=== PATIENT | male | born 1965 | race African-American/Black ===

== ENCOUNTER 2019-01-21 10:04 | Inpatient (IN) | payer MEDICAID, OTHER ==
[~2019-01-21] VITALS: Ht 182.9 cm; Wt 95.1 kg
[2019-01-21 11:02] LABS: Basophils # (auto) 0.1 uL; Basophils % (auto) 0.9 % (0.0-2.0); Eosinophils # (auto) 0.5 uL; Hematocrit 40.6 % (41.0-53.0); Lymphocytes # (auto) 1.5 uL; Mean Corpuscular Hemoglobin 29.3 pg (28.0-32.0); Mean Corpuscular Hgb Conc. 32.1 g/dL (32.0-36.0); Mean Corpuscular Volume 91.2 fL (80.0-100.0); Monocytes # (auto) 0.7 uL; Neutrophils # (auto) 3.9 uL; Neutrophils % (auto) 58.1 % (37.0-80.0); Platelet Count (auto) 243 10^3/uL (140-450); Red Blood Cells 4.46 10^6/uL (4.5-5.90); Red Cell Distribution Width 14.4 % (11.8-14.3); White Blood Cell 6.7 10^3/uL (4.4-10.8)
[2019-01-21 11:23] LABS: Chloride 117 mmol/L (98-107); INR 0.91 (0.9-1.15); Partial Thromboplastin Time 28.4 sec (23.78-33.04); Prothrombin Time 9.8 sec (9.27-12.13); Sodium 146 mmol/L (136-145)
[2019-01-21 11:31] LABS: Urine Bacteria NONE SEEN /hpf (None Seen); Urine Blood 1+ /uL (Negative); Urine Specific Gravity 1.009 (1.001-1.035); Urine WBC 1 /hpf (0 - 3)
[2019-01-21 11:37] LABS: Alanine Aminotransferase 33 U/L (16-61); Albumin 2.9 g/dL (3.4-5.0); Alkaline Phosphatase 89 U/L (45-117); Anion Gap 8 (5-15); Aspartate Aminotransferase 22 U/L (15-37); BUN/Creatinine Ratio 7.5; Bilirubin, Total 0.3 mg/dL (0.2-1.0); Blood Alcohol < 3.0 mg/dL (0-5); Blood Urea Nitrogen 49 mg/dL (7-18); Calcium 7.6 mg/dL (8.5-10.1); Carbon Dioxide 21 mmol/L (21-32); GFR African American 11 mL/min; GFR Non-African American 9 mL/min; Glucose 93 mg/dL (74-106); Total Protein 7.5 g/dL (6.4-8.2)
[2019-01-21 11:37] LABS: Alcohol, Urine < 3.0 mg/dL (0-5); Amphetamine Screen, Urine NEGATIVE (NEGATIVE); Barbiturate Scree,Urine NEGATIVE (NEGATIVE); Benzodiazephine Screen, Urine NEGATIVE (NEGATIVE); Cannabinoid Screen, Urine NEGATIVE (NEGATIVE); Cocaine Screen, Urine POSITIVE (NEGATIVE); Opiate Scree,Urine NEGATIVE (NEGATIVE); Phencyclidine Screen, Urine POSITIVE (NEGATIVE)
[2019-01-21] MEDS ORDERED: cloNIDine HCL 0.1 MG TAB PO ONE (11:45)
[2019-01-21] MEDS ORDERED: ENOXAPARIN SOD 100 MG/1 ML SYRINGE SC ONE (12:00)
[2019-01-21] MEDS ORDERED: cloNIDine 0.2 mg/24hr 7DAY PATCH TD ONE (14:15)
[2019-01-21] MEDS ORDERED: LORazepam 2MG/ML-1ML VIAL IV PRN (16:30)
[2019-01-21] MEDS ORDERED: ACETAMINOPHEN 500 MG TAB PO PRN (16:30)
[2019-01-21] MEDS ORDERED: ONDANSETRON HCL 4 MG/2 ML VIAL IV PRN (16:30)
[2019-01-21] MEDS ORDERED: NITROGLYCERIN 0.4 MG SL TAB SL PRN (16:30)
[2019-01-21] MEDS ORDERED: MORPHINE SULF INJ 2 MG/ML SYRINGE 1ML IV PRN (16:30)
[2019-01-21] MEDS ORDERED: MORPHINE SULFATE 4 MG/ML SYR/VIAL IV PRN (16:30)
[2019-01-21] MEDS: hydrALAZINE HCL 20 MG/ML VL IV PRN ×2 (17:18→23:05)
[2019-01-21] MEDS ORDERED: amLODIPine BESYLATE 5 MG TAB PO ONE (18:45)
[2019-01-21 22:00] VITALS: BP 104/59
[2019-01-21] MEDS: METOPROLOL TARTRATE 25 MG TAB PO SCH (22:00)
[2019-01-21] MEDS: ATORVASTATIN 20 MG TAB PO SCH (22:00)
--- NOTE | 2019-01-21 22:20 | NUR ---
Telemetry admit from ER FERNANDALYNDON admitted to Telemetry unit. No SBAR received. Patient oriented to TAWANDA LAWSON primary RN, [facility], room-0293, bed-A, and unit policies regarding patient care and visiting hours. Patient now on continuous telemetry monitoring, tele box #20 and telemetry reading on arrival to unit is SR 70-80's. Patient placed on bedside oxygen 2L, PRN, and encouraged to call if they need something. All questions and concerns addressed, patient verbalized understanding.
[2019-01-21] MEDS: HYDROcodone-ACET 5/325MG TAB PO PRN (23:04)
[2019-01-22 06:17] VITALS: BP 104/59
[2019-01-22 06:53] LABS: Basophils # (auto) 0 uL; Basophils % (auto) 0.7 % (0.0-2.0); Eosinophils # (auto) 0.5 uL; Eosinophils % (auto) 7.9 % (0.0-7.0); Hematocrit 39.5 % (41.0-53.0); Hemoglobin 12.5 g/dL (13.5-17.5); Lymphocytes # (auto) 1.4 uL; Lymphocytes % (auto) 22.2 % (10.0-50.0); Mean Corpuscular Hemoglobin 28.9 pg (28.0-32.0); Mean Corpuscular Hgb Conc. 31.7 g/dL (32.0-36.0); Mean Corpuscular Volume 91.2 fL (80.0-100.0); Monocytes # (auto) 0.5 uL; Monocytes % (auto) 7.9 % (0.0-12.0); Neutrophils # (auto) 3.8 uL; Neutrophils % (auto) 61.3 % (37.0-80.0); Nucleated Red Blood Cells % 0.1 %; Platelet Count (auto) 255 10^3/uL (140-450); Red Blood Cells 4.33 10^6/uL (4.5-5.90); Red Cell Distribution Width 14.6 % (11.8-14.3); White Blood Cell 6.1 10^3/uL (4.4-10.8)
[2019-01-22 06:56] LABS: INR 0.93 (0.9-1.15); Partial Thromboplastin Time 29.1 sec (23.78-33.04)
--- NOTE | 2019-01-22 07:00 | NUR ---
Opening Shift Note Assumed care of patient, awake and alert to person, place, and situation. No S/S of distress/SOB or pain. Instructed on POC and to call for assist PRN. Bed locked in the lowest position. Bed rails up x2. Call light in reach.
--- NOTE | 2019-01-22 07:04 | NUR ---
closing Shift Note SBAR REPORT TO BE GIVEN TO Maciej Ngo RN. awake and alert 4x. No S/S of distress/SOB or pain. Instructed on POC and to call for assist PRN, safety measures in place .
[2019-01-22 07:10] LABS: Potassium 4.1 mmol/L (3.5-5.1)
[2019-01-22 07:13] LABS: BUN/Creatinine Ratio 8.4; Calcium 7.9 mg/dL (8.5-10.1)
--- NOTE | 2019-01-22 08:00 | NUR ---
PATIENT MENTATION PATIENT IS ALERT AND ORIENTED AND STATES, "I AM HOMELESS RIGHT NOW AND LIVE IN MY CAR. I AM TRYING TO GET A HOLD OF MY DAUGHTER TO SEE IF I CAN STAY WITH HER." PATIENT ALSO STATES, "I NEED TO GET A DIALYSIS CATH AND PLAN TO GET ONE BECAUSE I NEED TO FIGHT THIS." PATIENT DENIES THOUGHTS OF HARMING SELF OR HARMING OTHERS.
[2019-01-22 08:25] VITALS: BP 125/87
[2019-01-22] MEDS: ASPirin-EC 81 mg tab PO SCH (09:55)
[2019-01-22] MEDS: PANTOPRAZOLE 40 MG/10 ML VIAL IV SCH (09:55)
[2019-01-22] MEDS: METOPROLOL TARTRATE 25 MG TAB PO SCH ×2 (09:56→23:01)
[2019-01-22] MEDS ORDERED: IOHEXOL 350 MG/ML 100ML IJ ONE (10:35)
[2019-01-22] MEDS ORDERED: LIDOCAINE 2%HCL (LOCAL ANESTH.) INJ 20ML MDV ONE ×2 (10:35→11:55)
[2019-01-22] MEDS ORDERED: MIDAZOLAM HCL 1MG/1ML-2 ML VIAL ONE (10:43)
[2019-01-22] MEDS ORDERED: fentaNYL CITRATE 100 MCG/2 ML VL ONE (10:45)
[2019-01-22] MEDS ORDERED: ceFAZolin 1GM/50ML 50 ML IV ONE (11:33)
[2019-01-22] MEDS ORDERED: HEPARIN SODIUM (PORCINE) 5000 UNITS/ML 1ML VIAL ONE (11:50)
[2019-01-22] MEDS: CALCIUM ACETATE 667 MG CAP PO SCH ×2 (12:00→18:00)
--- NOTE | 2019-01-22 14:20 | NUR ---
DRESSING TO RT UPPER CHEST DRESSING SOAKED THROUGH WITH SANGUINOUS DRAINAGE. MANUAL PRESSURE APPLIED. PRESSURE DRESSING APPLIED. SPOKE WITH RADIOLOGIST DR. EDGE. MD AWARE. PER MD, CHANGE DRESSING AND APPLY LIGHT SAND BAG. WILL CONTINUE TO MONITOR.
[2019-01-22] MEDS: HYDROcodone-ACET 5/325MG TAB PO PRN ×2 (16:01→23:00)
[2019-01-22] MEDS ORDERED: LIDOCAINE 1% (LOCAL ANESTH.) PF 5ml SDV ONE (16:49)
[2019-01-22 16:54] VITALS: BP 151/100
[2019-01-22] MEDS: hydrALAZINE HCL 20 MG/ML VL IV PRN (16:59)
--- NOTE | 2019-01-22 17:05 | NUR ---
AT THE BEDSIDE DR. EDGE AT THE BEDSIDE. MD ADDED STITCH TO RT UPPER CHEST. AND CHANGED DRESSING. PER MD, APPLY LIGHT SANDBAG.
[2019-01-22 17:30] VITALS: BP 134/92
--- NOTE | 2019-01-22 19:00 | NUR ---
CLOSING NOTE Patient is awake and alert. No S/S of distress/SOB or pain. Dressing to rt upper chest clean dry and intact. Bed locked in the lowest position. Bed rails up x2. Call light in reach. Endorsed care to night shift supervisor nurse.
[2019-01-22] MEDS ORDERED: HCTZ25T PO (19:33)
[2019-01-22] MEDS ORDERED: MET25T PO (19:33)
[2019-01-22] MEDS ORDERED: CLON0.1T PO (19:33)
--- NOTE | 2019-01-22 19:50 | NUR ---
Opening Shift Note Assumed care of pt, sitting up in bed watching television, alert and oriented x4. No S/S of distress or SOB, no pain noted or reported at this time. Instructed on POC and to call for assistance as needed. Bed locked in lowest position with call light within reach. Will continue to monitor Q1hr or PRN throughout the shift.
[2019-01-22 22:00] VITALS: BP 148/82
[2019-01-22] MEDS: SODIUM BICARBONATE 650 MG TAB PO SCH (22:59)
[2019-01-22] MEDS: ATORVASTATIN 20 MG TAB PO SCH (23:00)
[2019-01-23 05:21] VITALS: BP 147/102
[2019-01-23 05:51] LABS: Basophils # (auto) 0 uL; Basophils % (auto) 0.6 % (0.0-2.0); Eosinophils # (auto) 0.5 uL; Eosinophils % (auto) 7.9 % (0.0-7.0); Hemoglobin 11.2 g/dL (13.5-17.5); Lymphocytes # (auto) 1.6 uL; Lymphocytes % (auto) 27.2 % (10.0-50.0); Mean Corpuscular Hemoglobin 29.1 pg (28.0-32.0); Mean Corpuscular Hgb Conc. 32.1 g/dL (32.0-36.0); Mean Corpuscular Volume 90.6 fL (80.0-100.0); Monocytes # (auto) 0.5 uL; Monocytes % (auto) 8.4 % (0.0-12.0); Neutrophils # (auto) 3.3 uL; Neutrophils % (auto) 55.9 % (37.0-80.0); Nucleated Red Blood Cells % 0.1 %; Platelet Count (auto) 216 10^3/uL (140-450); Red Blood Cells 3.87 10^6/uL (4.5-5.90); Red Cell Distribution Width 14.3 % (11.8-14.3); White Blood Cell 5.9 10^3/uL (4.4-10.8)
[2019-01-23 06:25] LABS: BUN/Creatinine Ratio 8.9; Calcium 7.8 mg/dL (8.5-10.1)
[2019-01-23] MEDS ORDERED: SODIUM CHL 0.9% 1000 ML BAG XX ONE (07:00)
--- NOTE | 2019-01-23 07:30 | NUR ---
Opening Shift Note Assumed care of patient, awake and alert. No S/S of distress/SOB or pain reported at this time. Instructed on POC and to call for assist PRN, call light within reach, right upper chest dialysis catheter cdi, will continue to monitor for changes Q1hr and PRN.
[2019-01-23 08:00] VITALS: BP 130/72
[2019-01-23] MEDS: CALCIUM ACETATE 667 MG CAP PO SCH ×3 (08:00→18:00)
--- NOTE | 2019-01-23 08:15 | NUR ---
DIALYSIS NURSE AT BEDSIDE
[2019-01-23 08:29] VITALS: BP 124/71
--- NOTE | 2019-01-23 12:10 | NUR ---
DIALYSIS COMPLETE 2L WERE REMOVED PER DIALYSIS NURSE, VS 141/97, P 91, RR 18, PT ASYMPTOMATIC, CONT CARE
[2019-01-23 13:00] VITALS: BP 161/99
[2019-01-23] MEDS: PANTOPRAZOLE 40 MG/10 ML VIAL IV SCH (14:41)
[2019-01-23] MEDS: ASPirin-EC 81 mg tab PO SCH (14:42)
[2019-01-23] MEDS: METOPROLOL TARTRATE 25 MG TAB PO SCH ×2 (14:42→21:58)
[2019-01-23] MEDS: SODIUM BICARBONATE 650 MG TAB PO SCH ×2 (14:42→21:59)
[2019-01-23 16:45] VITALS: BP 134/89
--- NOTE | 2019-01-23 16:58 | NUR ---
PT CARE ENDORSED TO CHARLES ARRIAGA PT CURRENTLY AWAKE, AXOX4, NO DISTRESS NOTED
--- NOTE | 2019-01-23 19:40 | NUR ---
Opening Shift Note Assumed care of pt, sitting up in bed watching television and talking on the phone, alert and oriented x4. No S/S of distress or SOB, no pain noted or reported at this time. Instructed on POC and to call for assistance as needed. Bed locked in lowest position with call light within reach. Will continue to monitor Q1hr or PRN throughout the shift.
[2019-01-23] MEDS: HYDROcodone-ACET 5/325MG TAB PO PRN (20:55)
[2019-01-23] MEDS: ATORVASTATIN 20 MG TAB PO SCH (21:59)
[2019-01-23 22:00] VITALS: BP 131/67
--- NOTE | 2019-01-24 00:13 | NUR ---
IV Removal and Insertion Right AC IV DC'd with clean sterile technique, catheter fully intact. Pressure dressing applied to site. Patient tolerated well. IV access obtained, via clean sterile technique by inserting 20 gauge catheter at Right Forearm after 3 attempt(s). IV secured properly. No trauma to site. Patient tolerated well.
[2019-01-24 05:00] VITALS: BP 119/65
[2019-01-24 06:19] LABS: Basophils # (auto) 0 uL; Basophils % (auto) 0.7 % (0.0-2.0); Eosinophils # (auto) 0.5 uL; Eosinophils % (auto) 8.4 % (0.0-7.0); Hematocrit 34.8 % (41.0-53.0); Hemoglobin 11.4 g/dL (13.5-17.5); Lymphocytes # (auto) 1.6 uL; Lymphocytes % (auto) 28.4 % (10.0-50.0); Mean Corpuscular Hemoglobin 29.5 pg (28.0-32.0); Mean Corpuscular Hgb Conc. 32.6 g/dL (32.0-36.0); Mean Corpuscular Volume 90.6 fL (80.0-100.0); Monocytes # (auto) 0.6 uL; Monocytes % (auto) 10.9 % (0.0-12.0); Neutrophils # (auto) 2.9 uL; Neutrophils % (auto) 51.6 % (37.0-80.0); Nucleated Red Blood Cells % 0.1 %; Platelet Count (auto) 203 10^3/uL (140-450); Red Blood Cells 3.85 10^6/uL (4.5-5.90); Red Cell Distribution Width 13.9 % (11.8-14.3); White Blood Cell 5.6 10^3/uL (4.4-10.8)
[2019-01-24 06:25] LABS: BUN/Creatinine Ratio 8.4; Calcium 7.9 mg/dL (8.5-10.1); Potassium 3.7 mmol/L (3.5-5.1)
[2019-01-24 08:00] VITALS: BP 133/91
[2019-01-24] MEDS ORDERED: ERGOCALCIFEROL 50,000 UNIT(1.25MG) CAP PO SCH (09:00)
[2019-01-24] MEDS: CALCIUM ACETATE 667 MG CAP PO SCH ×3 (09:19→18:16)
[2019-01-24] MEDS: ASPirin-EC 81 mg tab PO SCH (10:25)
[2019-01-24] MEDS: PANTOPRAZOLE 40 MG/10 ML VIAL IV SCH (10:25)
[2019-01-24] MEDS: SODIUM BICARBONATE 650 MG TAB PO SCH ×2 (10:25→21:40)
[2019-01-24] MEDS: METOPROLOL TARTRATE 25 MG TAB PO SCH ×2 (10:26→21:40)
--- NOTE | 2019-01-24 11:44 | NUR ---
assessment Patient is a 53 year old male who is alert and oriented. Patient informed me prior to admission he was homeless. Patient informed me he has been living with friends and in his car for the past 6 months since he was paroled. Patient has no income. Patient functions independently. Patient has no advanced directive or POA. Patient informed me he will find his own place to go on discharge. Patient has been offered homeless resource packet and he accepted. Patient has been offered homeless jail and he refused. Patient has a ss consult for homeless that has been addressed above and a ss consult for new dialysis chair time. MD order and dialysis packet has been sent to [facility] dialysis. Waiting for chair time now. Addendum: 01/25/19 at 1552 by Yesi MEDINA Amended: Links added.
[2019-01-24 12:16] LABS: Hepatitis A Ab IgM Negative; Hepatitis B Core IgM Negative; Hepatitis B Surface Antigen Negative (Negative)
[2019-01-24 12:17] LABS: Hepatitis C Antibody Negative (Negative)
[2019-01-24] MEDS: HYDROcodone-ACET 5/325MG TAB PO PRN ×2 (12:46→21:40)
[2019-01-24 13:00] VITALS: BP 153/101
--- NOTE | 2019-01-24 19:30 | NUR ---
Opening Shift Note Assumed care of pt, sitting up in talking on the phone, alert and oriented x4. No S/S of distress or SOB, no pain noted or reported at this time. Instructed on POC and to call for assistance as needed. Bed locked in lowest position with call light within reach. Will continue to monitor Q1hr or PRN throughout the shift.
[2019-01-24] MEDS: ATORVASTATIN 20 MG TAB PO SCH (21:40)
[2019-01-24 22:00] VITALS: BP 146/92
[2019-01-25 05:00] VITALS: BP 144/92
[2019-01-25 06:23] LABS: Basophils # (auto) 0.1 uL; Eosinophils # (auto) 0.5 uL; Eosinophils % (auto) 8.1 % (0.0-7.0); Hematocrit 33.2 % (41.0-53.0); Hemoglobin 10.7 g/dL (13.5-17.5); Lymphocytes # (auto) 1.8 uL; Lymphocytes % (auto) 32.5 % (10.0-50.0); Mean Corpuscular Hemoglobin 29.1 pg (28.0-32.0); Mean Corpuscular Hgb Conc. 32.1 g/dL (32.0-36.0); Mean Corpuscular Volume 90.7 fL (80.0-100.0); Monocytes # (auto) 0.6 uL; Monocytes % (auto) 10.1 % (0.0-12.0); Neutrophils # (auto) 2.7 uL; Neutrophils % (auto) 48.3 % (37.0-80.0); Nucleated Red Blood Cells % 0.1 %; Platelet Count (auto) 188 10^3/uL (140-450); Red Blood Cells 3.66 10^6/uL (4.5-5.90); Red Cell Distribution Width 13.8 % (11.8-14.3); White Blood Cell 5.6 10^3/uL (4.4-10.8)
[2019-01-25 06:37] LABS: BUN/Creatinine Ratio 8.4; Calcium 7.5 mg/dL (8.5-10.1); Potassium 3.6 mmol/L (3.5-5.1)
[2019-01-25 08:00] VITALS: BP 152/91
[2019-01-25] MEDS: CALCIUM ACETATE 667 MG CAP PO SCH ×3 (08:00→18:00)
[2019-01-25] MEDS ORDERED: SODIUM CHL 0.9% 1000 ML BAG XX ONE (08:30)
[2019-01-25 09:00] VITALS: BP 145/87
[2019-01-25] MEDS: HYDROcodone-ACET 5/325MG TAB PO PRN ×2 (09:28→17:07)
--- NOTE | 2019-01-25 09:45 | NUR ---
FAMILY SPOKE WITH PT'S TERRI FIERRO, STATES SHE WILL COME SEE PT, CONTACT
[2019-01-25] MEDS: PANTOPRAZOLE 40 MG/10 ML VIAL IV SCH (10:00)
--- NOTE | 2019-01-25 10:05 | NUR ---
NEPHRO DR TIDWELL AT BEDSIDE, DISCUSSING POC, PT SCHEDULED FOR DIALYSIS TODAY, [facility]
--- NOTE | 2019-01-25 10:08 | NUR ---
TECHNICAL DOCUMENT WRITER PAGED KODI PAGED REGARDING CONSULT FOR HOMELESSNESS, CONT CARE
[2019-01-25] MEDS ORDERED: CALC667C5 PO (10:42)
[2019-01-25] MEDS ORDERED: MET25T PO (10:42)
[2019-01-25] MEDS ORDERED: ERGO1CAP23 PO (10:42)
[2019-01-25] MEDS ORDERED: SODI650T PO (10:42)
[2019-01-25 13:00] VITALS: BP 149/89
[2019-01-25 13:44] LABS: Hematocrit 35.6 % (41.0-53.0); Hemoglobin 11.3 g/dL (13.5-17.5)
--- NOTE | 2019-01-25 15:37 | NUR ---
DIALYSIS IN PROCESS PT ASYMPTOMATIC, CONT CARE
--- NOTE | 2019-01-25 15:50 | NUR ---
re-assessment Patient has signed homeless waiver and it has been placed in his chart. I have informed patient he has dialysis chair time on at 245pm per Ezequiel at [facility]. Patient has been given the address and phone number for dialysis. Patient verbalized understanding and agreed to discharge plan of finding his own long term. Addendum: 01/25/19 at 1552 by Yesi MEDINA Amended: Links added.
--- NOTE | 2019-01-25 16:37 | NUR ---
DIALYSIS COMPLETE 2.5L REMOVED, BP 147/86, P 83, PT ASYMPTOMATIC, CONT CARE
[2019-01-25 17:00] VITALS: BP 139/97
[2019-01-25] MEDS: SODIUM BICARBONATE 650 MG TAB PO SCH (17:07)
[2019-01-25] MEDS: ASPirin-EC 81 mg tab PO SCH (17:07)
[2019-01-25] MEDS: METOPROLOL TARTRATE 25 MG TAB PO SCH (17:08)
--- NOTE | 2019-01-25 17:37 | NUR ---
DISCHARGE Discharge instructions given as ordered. Encourage to follow up with PMD as instructed, Appointment made to follow up with Dr Ryan Goddard 01/29/19 @ 9:00, phone number and address provided, patient also was provided with dialysis days for tx, phone number and address. All questions and concerns addressed. Patient was informed MD sent prescribed medications electronically to their preferred pharmacy, pt verbalized understanding. Medication reconciliation form completed and copy given to patient. IV removed with catheter intact, pressure dressing applied. Telemetry unit returned to ICU. Patient taken to vehicle via wheelchair with all personal belongings, accompanied by staff and family member. No distress noted at time of departure. Addendum: 01/25/19 at 1802 by Vanessa Smith RN TRANSPORTATION WAS PROVIDED BY A FRIEND
[2019-01-25] MEDS ORDERED: EPOETIN ALFA 10,000 UNIT/1 ML VIAL SC ONE (21:00)
== END 2019-01-25 17:37 | disposition home or self-care (01) | DRG 192 ==
LOC: ER 10:04 → EDBD 10:04 → EDUNIT# 10:04 → TELE 16:34 → TELE-WESTW 21:55
PROVIDERS: ADMIT Nurse Practitioner Acute Care; ATTEND Internal Medicine
PROC: B2141ZZ Fluoroscopy of Right Heart using Low Osmolar Contrast (ICD-10-PCS; 2019-01-22)
PROC: 0JH63XZ Insertion of Tunneled Vascular Access Device into Chest Subcutaneous Tissue and Fascia, Percutaneous Approach (ICD-10-PCS; 2019-01-22)
PROC: 02H633Z Insertion of Infusion Device into Right Atrium, Percutaneous Approach (ICD-10-PCS; 2019-01-22)
PROC: B244ZZZ Ultrasonography of Right Heart (ICD-10-PCS; 2019-01-22)
PROC: 5A1D70Z Performance of Urinary Filtration, Intermittent, Less than 6 Hours Per Day (ICD-10-PCS; principal; 2019-01-23)
PROC: 5A1D70Z Performance of Urinary Filtration, Intermittent, Less than 6 Hours Per Day (ICD-10-PCS; 2019-01-25)
DX: I16.9 Hypertensive crisis, unspecified (principal); I21.4 Non-ST elevation (NSTEMI) myocardial infarction; G92 Toxic encephalopathy; E44.0 Moderate protein-calorie malnutrition; E87.2 Acidosis; E66.9 Obesity, unspecified; F14.10 Cocaine abuse, uncomplicated; N18.6 End stage renal disease; I12.0 Hypertensive chronic kidney disease with stage 5 chronic kidney disease or end stage renal disease; E79.0 Hyperuricemia without signs of inflammatory arthritis and tophaceous disease; N25.81 Secondary hyperparathyroidism of renal origin; D64.9 Anemia, unspecified; F17.200 Nicotine dependence, unspecified, uncomplicated; E83.39 Other disorders of phosphorus metabolism; Z99.2 Dependence on renal dialysis; Z59.0 Homelessness; Z82.3 Family history of stroke; Z82.49 Family history of ischemic heart disease and other diseases of the circulatory system; Z83.3 Family history of diabetes mellitus; Z68.28 Body mass index [BMI] 28.0-28.9, adult
CPT/HCPCS: 36415; 36600; 70450; 71045; 76000; 76942; 80048; 80053; 80074; 80307; 80320; 81001; 82306; 82728; 82805; 83540; 83550; 83605; 83970; 84100; 84484; 85014; 85018; 85025; 85610; 85730; 86141; 87040; 87081; 90935; 93005; 93306; 96372; A6257; C9113; G0378; J0690; J0885; J1642; J2250

== ENCOUNTER 2019-07-02 04:27 | Inpatient (IN) | payer MEDICAID ==
[~2019-07-02] VITALS: Ht 175.3 cm; Wt 91.4 kg
[~2019-07-02 04:27] MED LIST: CALC667C5 PO; ERGO1CAP23 PO; HCTZ25T PO; MET25T PO; SODI650T PO
[2019-07-02 08:42] LABS: Basophils # (auto) 0 uL; Basophils % (auto) 0.2 % (0.0-2.0); Eosinophils # (auto) 0 uL; Lymphocytes # (auto) 0.8 uL; Lymphocytes % (auto) 7.6 % (10.0-50.0); Mean Corpuscular Hemoglobin 30.7 pg (28.0-32.0); Mean Corpuscular Hgb Conc. 33.4 g/dL (32.0-36.0); Mean Corpuscular Volume 92.1 fL (80.0-100.0); Monocytes # (auto) 0.9 uL; Monocytes % (auto) 9.3 % (0.0-12.0); Neutrophils # (auto) 8.5 uL; Neutrophils % (auto) 82.9 % (37.0-80.0); Nucleated Red Blood Cells % 0.1 %; Platelet Count (auto) 288 10^3/uL (140-450); Red Blood Cells 4.23 10^6/uL (4.5-5.90); Red Cell Distribution Width 14.7 % (11.8-14.3); White Blood Cell 10.2 10^3/uL (4.4-10.8)
[2019-07-02 09:00] LABS: Albumin 4.6 g/dL (3.4-5.0); BUN/Creatinine Ratio 6.3; Calcium 7.5 mg/dL (8.5-10.1); Potassium 5.4 mmol/L (3.5-5.1)
[2019-07-02 09:02] LABS: Bilirubin, Total 0.4 mg/dL (0.2-1.0); Total Protein 8.8 g/dL (6.4-8.2)
[2019-07-02] MEDS ORDERED: ALBUTEROL SULF 2.5 MG/0.5ML(0.5%) NEB SOLN NEB STA (10:47)
[2019-07-02] MEDS ORDERED: CALCIUM GLUC 4.65meq/50ml D5AE 50 ML IV ONE (11:00)
[2019-07-02] MEDS ORDERED: SODIUM BICARBONATE 8.4% INJ 50ML SYRINGE IV ONE (11:00)
[2019-07-02] MEDS ORDERED: DEXTROSE (50%) 50ML SYRG IV ONE (11:00)
[2019-07-02] MEDS ORDERED: InsuLIN REG 1unit/0.01ml Soln (100units/ml) IV ONE (11:00)
[2019-07-02] MEDS ORDERED: SODIUM ZIRCONIUM CYCL 10 GM PAK PO ONE (11:00)
[2019-07-02] MEDS ORDERED: NITROGLYCERIN 0.4 MG SL TAB SL PRN (11:45)
[2019-07-02] MEDS ORDERED: ONDANSETRON HCL 4 MG/2 ML VIAL IV PRN (11:45)
[2019-07-02] MEDS ORDERED: ACETAMINOPHEN 500 MG TAB PO PRN (11:45)
[2019-07-02] MEDS ORDERED: LORazepam 2MG/ML-1ML VIAL IV PRN (11:45)
[2019-07-02] MEDS ORDERED: hydrALAZINE HCL 20 MG/ML VL IV PRN (11:45)
[2019-07-02] MEDS ORDERED: MORPHINE SULF INJ 2 MG/ML SYRINGE 1ML IV PRN ×2 (11:45)
[2019-07-02] MEDS: HYDROcodone-ACET 5/325MG TAB PO PRN (19:59)
[2019-07-02] MEDS ORDERED: ALBUMIN 5% 250 ML IV ONE (22:15)
[2019-07-03 04:03] LABS: Urine Amorphous Crystal FEW /hpf (None Seen); Urine Bacteria FEW /hpf (None Seen); Urine Blood 1+ /uL (Negative); Urine Specific Gravity 1.009 (1.001-1.035); Urine WBC 1 /hpf (0 - 3)
[2019-07-03 04:05] LABS: Alcohol, Urine < 3.0 mg/dL (0-5); Amphetamine Screen, Urine NEGATIVE (NEGATIVE); Barbiturate Scree,Urine NEGATIVE (NEGATIVE); Benzodiazephine Screen, Urine NEGATIVE (NEGATIVE); Cannabinoid Screen, Urine NEGATIVE (NEGATIVE); Cocaine Screen, Urine POSITIVE (NEGATIVE); Opiate Scree,Urine NEGATIVE (NEGATIVE); Phencyclidine Screen, Urine POSITIVE (NEGATIVE)
[2019-07-03 05:55] LABS: Basophils # (auto) 0 uL; Basophils % (auto) 0.5 % (0.0-2.0); Eosinophils # (auto) 0.1 uL; Eosinophils % (auto) 2.5 % (0.0-7.0); Hematocrit 34.4 % (41.0-53.0); Hemoglobin 11.6 g/dL (13.5-17.5); Lymphocytes # (auto) 1.6 uL; Mean Corpuscular Hemoglobin 30.9 pg (28.0-32.0); Mean Corpuscular Hgb Conc. 33.6 g/dL (32.0-36.0); Mean Corpuscular Volume 91.8 fL (80.0-100.0); Monocytes # (auto) 0.6 uL; Monocytes % (auto) 11.3 % (0.0-12.0); Neutrophils # (auto) 3.3 uL; Neutrophils % (auto) 57.7 % (37.0-80.0); Nucleated Red Blood Cells % 0.1 %; Platelet Count (auto) 241 10^3/uL (140-450); Red Blood Cells 3.75 10^6/uL (4.5-5.90); Red Cell Distribution Width 14.3 % (11.8-14.3); White Blood Cell 5.7 10^3/uL (4.4-10.8)
[2019-07-03 06:08] LABS: Partial Thromboplastin Time 29.3 sec (23.64-32.05)
[2019-07-03 08:00] LABS: Albumin 3.9 g/dL (3.4-5.0); Potassium 3.6 mmol/L (3.5-5.1)
--- NOTE | 2019-07-03 08:02 | NUR ---
Telemetry admit from ER LYNDON MICHAEL admitted to Telemetry unit. Patient oriented to Leonard Burks, primary RN, unit, room, bed, and unit policies regarding patient care and visiting hours. Patient now on continuous telemetry monitoring, tele box # 38 and telemetry reading on arrival to unit is [id number]. Patient placed on bedside oxygen, weighed by bed scale and encouraged to call if they need something. All questions and concerns addressed, patient verbalized understanding. N
[2019-07-03 08:09] LABS: Calcium 6.7 mg/dL (8.5-10.1)
[2019-07-03 08:14] LABS: Bilirubin, Total 0.3 mg/dL (0.2-1.0); Total Protein 7.4 g/dL (6.4-8.2)
[2019-07-03 09:00] VITALS: BP 117/80
--- NOTE | 2019-07-03 09:01 | NUR ---
Paged Dr. Cid: latest CMP results and returned call, patient is to have dialysis today and will sent manager dialysis.
[2019-07-03] MEDS: FAMOTIDINE 20 MG TAB PO SCH (10:19)
[2019-07-03] MEDS ORDERED: B-COMPLEX W/ C & FOLIC ACID(NEPHROVITE TAB) PO ONE (11:00)
[2019-07-03 12:12] VITALS: BP 107/55
[2019-07-03] MEDS: CALCIUM ACETATE 667 MG CAP PO SCH ×2 (12:44→18:44)
[2019-07-03] MEDS: HYDROcodone-ACET 5/325MG TAB PO PRN ×2 (12:47→18:47)
--- NOTE | 2019-07-03 16:00 | NUR ---
Hemodialysis done. No fluid was out per patient request. Patient complained about having severe cramps every after dialysis. Dr. Cid was made aware per incinerator attendant.
--- NOTE | 2019-07-03 16:13 | NUR ---
assessment Patient is a 54 year old male who is alert and oriented. Prior to admission patient lived home with his fiance and functioned independently. per patient he is here visiting from [place]. Patient informed me he is on dialysis with [facility] in [place]. I informed patient he has a ss consult for needs assistance at home. Patient informed me he does not need assistance at home. Patient informed me he needs help with his cramping after he has dialysis. I informed patient to speak to the MD about his cramping. Patient verbalized understanding and agreed to discharge plan home. Addendum: 07/04/19 at 1617 by Yesi MEDINA Amended: Links added.
--- NOTE | 2019-07-03 16:25 | NUR ---
Patient out of bed.
[2019-07-03 16:42] VITALS: BP 125/68
--- NOTE | 2019-07-03 17:50 | NUR ---
Patient back to bed.
--- NOTE | 2019-07-03 18:54 | NUR ---
Patient out of bed. Went AMA to smoke.
--- NOTE | 2019-07-03 19:23 | NUR ---
Patient back to his bed.
[2019-07-03 22:00] VITALS: BP 115/71
[2019-07-04 04:36] VITALS: BP 128/80
[2019-07-04 06:16] LABS: BUN/Creatinine Ratio 6.1; Calcium 7.6 mg/dL (8.5-10.1); Potassium 4.2 mmol/L (3.5-5.1)
--- NOTE | 2019-07-04 06:31 | NUR ---
SABAS PAGED BECAUSE THE PATIENT HAS A HIGH CREATININE OF 12.4. PT TOLD DIALYSIS NURSE DURING DIALYSIS YESTERDAY THAT HE DID NOT WANT ANY FLUID TAKEN OFF" DURING DIALYSIS.
--- NOTE | 2019-07-04 08:00 | NUR ---
Opening Shift Note Assumed care of patient, awake and alert. No S/S of distress/SOB or pain. Instructed on POC and to call for assist PRN, will continue to monitor for changes Q1hr and PRN.
[2019-07-04] MEDS: CALCIUM ACETATE 667 MG CAP PO SCH ×2 (08:50→13:02)
[2019-07-04] MEDS: FAMOTIDINE 20 MG TAB PO SCH (08:50)
[2019-07-04] MEDS: HYDROcodone-ACET 5/325MG TAB PO PRN (08:53)
[2019-07-04 09:02] VITALS: BP 124/72
[2019-07-04] MEDS ORDERED: B-COMPLEX W/ C & FOLIC ACID(NEPHROVITE TAB) PO SCH (10:00)
--- NOTE | 2019-07-04 13:00 | NUR ---
Discharge instructions given as ordered. Encourage to follow up with PMD Dr. Ryan Box on 07/09/19 at 0830 #[phone] [place] [address] [place], [place] as instructed. All questions and concerns addressed. Patient verbalized understanding. Medication reconciliation form completed and copy given to patient. IV removed with catheter intact, pressure dressing applied. Telemetry unit returned to ICU. Patient ambulated to vehicle with all personal belongings, accompanied by staff and family member. No distress noted at time of departure.
== END 2019-07-04 13:00 | disposition home or self-care (01) | DRG 194 ==
LOC: ER 04:27 → TELE 04:28 → TELE-CENTR 07-03 08:20
PROVIDERS: ADMIT Nurse Practitioner Acute Care; ATTEND Internal Medicine
PROC: 5A1D70Z Performance of Urinary Filtration, Intermittent, Less than 6 Hours Per Day (ICD-10-PCS; principal; 2019-07-03)
DX: I13.2 Hypertensive heart and chronic kidney disease with heart failure and with stage 5 chronic kidney disease, or end stage renal disease (principal); N18.6 End stage renal disease; E87.5 Hyperkalemia; F19.10 Other psychoactive substance abuse, uncomplicated; D64.9 Anemia, unspecified; I50.43 Acute on chronic combined systolic (congestive) and diastolic (congestive) heart failure; R09.02 Hypoxemia; E78.5 Hyperlipidemia, unspecified; F14.10 Cocaine abuse, uncomplicated; Z82.3 Family history of stroke; Z82.49 Family history of ischemic heart disease and other diseases of the circulatory system; Z99.2 Dependence on renal dialysis; Z91.19 Patient's noncompliance with other medical treatment and regimen; Z83.3 Family history of diabetes mellitus
CPT/HCPCS: 36415; 71046; 80048; 80053; 80307; 81001; 83880; 84132; 85025; 85610; 85730; 87081; 90935; 94640; 96365; 96375; G0378; J0610; J1815

== ENCOUNTER 2019-08-30 18:11 | Emergency (ER) | payer MEDICAID ==
[~2019-08-30] VITALS: Ht 177.8 cm; Wt 88.5 kg
[2019-08-30 18:43] VITALS: BP 151/39
[2019-08-30] MEDS ORDERED: cloNIDine HCL 0.1 MG TAB PO ONE (19:00)
[2019-08-30 19:16] LABS: Basophils # (auto) 0.1 uL; Basophils % (auto) 1.1 % (0.0-2.0); Eosinophils # (auto) 0.4 uL; Eosinophils % (auto) 5.3 % (0.0-7.0); Hematocrit 38.7 % (41.0-53.0); Hemoglobin 12.4 g/dL (13.5-17.5); Lymphocytes # (auto) 1.7 uL; Lymphocytes % (auto) 24.3 % (10.0-50.0); Mean Corpuscular Hemoglobin 29.2 pg (28.0-32.0); Mean Corpuscular Hgb Conc. 32.1 g/dL (32.0-36.0); Mean Corpuscular Volume 91.1 fL (80.0-100.0); Monocytes # (auto) 0.5 uL; Monocytes % (auto) 7.6 % (0.0-12.0); Neutrophils # (auto) 4.4 uL; Neutrophils % (auto) 61.7 % (37.0-80.0); Platelet Count (auto) 260 10^3/uL (140-450); Red Blood Cells 4.25 10^6/uL (4.5-5.90); Red Cell Distribution Width 16.4 % (11.8-14.3); White Blood Cell 7.2 10^3/uL (4.4-10.8)
[2019-08-30 19:30] LABS: BUN/Creatinine Ratio 5.1; Calcium 8.1 mg/dL (8.5-10.1)
[2019-08-30 19:57] LABS: Bilirubin, Total 0.3 mg/dL (0.2-1.0); Total Protein 8.1 g/dL (6.4-8.2)
== END 2019-08-30 21:00 | disposition left against medical advice (07) ==
LOC: EDBD 18:11 → ER 18:17
DX: I12.0 Hypertensive chronic kidney disease with stage 5 chronic kidney disease or end stage renal disease (principal); B34.9 Viral infection, unspecified; N18.6 End stage renal disease; Z99.2 Dependence on renal dialysis; Z91.19 Patient's noncompliance with other medical treatment and regimen; Z79.899 Other long term (current) drug therapy
CPT/HCPCS: 36415; 71046; 80053; 82140; 84484; 85025; 93005